=== PATIENT | female | born 1980 | race Caucasian/White ===

== ENCOUNTER 2019-12-09 14:52 | Emergency (ER) | payer OTHER ==
[~2019-12-09] VITALS: Ht 165.1 cm; Wt 104.3 kg
[~2019-12-09 14:52] MED LIST: CETIRIZINE HYDR10 MG PO; CLARITIN10 MG PO; CLINDAMYCIN HC300 MG PO; HYDROCODONE BIT1 T11 PO; TRAMADOL HCL50 MG PO; VITAMIN D2000 IU PO; [UNRECOGNIZED DRUG - OTHER] IM
== END 2019-12-09 17:50 | disposition home or self-care (01) ==
LOC: ED 14:52
DX: S82.891A Other fracture of right lower leg, initial encounter for closed fracture (principal); Z88.0 Allergy status to penicillin; Z91.030 Bee allergy status; Z79.899 Other long term (current) drug therapy; W17.2XXA Fall into hole, initial encounter; Y93.89 Activity, other specified; Y92.89 Other specified places as the place of occurrence of the external cause; Y99.8 Other external cause status

== ENCOUNTER 2021-11-14 13:17 | Emergency (ER) | payer OTHER ==
[~2021-11-14] VITALS: Wt 90.7 kg
[2021-11-14 14:09] LABS: BASO % 0.2 % (0.0-1.0); EOS # 0.1 10*3/uL (0.0-0.4); EOS % 0.7 % (1.0-4.0); HEMATOCRIT 38.3 % (37.0-47.0); LYMPH # 1.2 10*3/uL (1.3-4.4); MEAN CORPUSCULAR HGB 32.7 pg (27.0-31.0); MEAN CORPUSCULAR HGB CONC 33.7 g/dl (33.0-37.0); MEAN PLATELET VOLUME 11.7 fl (9.6-12.3); MONO # 0.7 10*3/uL (0.1-1.0); MONO % 6.6 % (3.0-9.0); NEUT # 8.7 10*3/uL (2.3-7.9); NEUT % 81.1 % (47.0-73.0); PLATELET COUNT AUTOMATED 169 10*3/uL (130-400); RED BLOOD COUNT 3.95 10*6/uL (4.10-5.10); WHITE BLOOD COUNT 10.8 10*3/uL (4.8-10.8)
[2021-11-14 14:26] LABS: ALKALINE PHOSPHATASE 70 U/L (45-117); BUN 8 mg/dl (7-24); CHLORIDE 110 mmol/L (98-107); CREATININE 0.72 mg/dL (0.55-1.02); POTASSIUM 3.8 mmol/L (3.5-5.1); SGOT/AST 9 IU/L (3-35); SGPT/ALT 20 U/L (12-78); SODIUM 141 mmol/L (136-145); TOTAL PROTEIN 6.1 gm/dL (6.4-8.2)
[2021-11-14 14:29] LABS: BETA-HCG, QUANT < 1.0 mIU/mL (1-3)
== END 2021-11-14 17:36 | disposition home or self-care (01) ==
LOC: ED 13:17
PROVIDERS: Family Medicine
DX: B34.9 Viral infection, unspecified (principal)

== ENCOUNTER 2022-01-08 09:34 | Emergency (ER) | payer OTHER ==
[~2022-01-08] VITALS: Ht 167.6 cm; Wt 94.3 kg
[2022-01-08] MEDS ORDERED: DICYCLOMINE HCL10 MG PO (09:58)
[2022-01-08] MEDS ORDERED: CIPROFLOXACIN500 M4 PO (09:59)
[2022-01-08] MEDS ORDERED: CELECOXIB200 M1 PO (10:00)
[2022-01-08] MEDS ORDERED: METRONIDAZOLE500 M1 PO (10:00)
[2022-01-08] MEDS ORDERED: ONDANSETRON HYDR4 MG PO (10:00)
[2022-01-08] MEDS ORDERED: B121000 MCG/1 IM (10:20)
[2022-01-08] MEDS ORDERED: METHOTREXA25 MG/1 M6 IM (10:20)
[2022-01-08] MEDS ORDERED: OMEPRAZOLE MAGN20 MG PO (10:21)
[2022-01-08] MEDS ORDERED: NATURE'S BLEND F1 MG PO (10:21)
[2022-01-08 10:26] LABS: BASO % 0.4 % (0.0-1.0); EOS # 0.1 10*3/uL (0.0-0.4); EOS % 1.3 % (1.0-4.0); HEMATOCRIT 39.3 % (37.0-47.0); LYMPH # 0.9 10*3/uL (1.3-4.4); LYMPH % 12.8 % (27.0-41.0); MEAN CELL VOLUME 94.7 fl (81.0-99.0); MEAN CORPUSCULAR HGB 30.6 pg (27.0-31.0); MEAN CORPUSCULAR HGB CONC 32.3 g/dl (33.0-37.0); MEAN PLATELET VOLUME 10.2 fl (9.6-12.3); MONO # 0.5 10*3/uL (0.1-1.0); MONO % 7.3 % (3.0-9.0); NEUT # 5.3 10*3/uL (2.3-7.9); NEUT % 77.9 % (47.0-73.0); PLATELET COUNT AUTOMATED 258 10*3/uL (130-400); RED BLOOD COUNT 4.15 10*6/uL (4.10-5.10); RED CELL DISTRI WIDTH 12.1 % (0-14.5); WHITE BLOOD COUNT 6.7 10*3/uL (4.8-10.8)
[2022-01-08 10:49] LABS: BUN 10 mg/dl (7-24); CHLORIDE 109 mmol/L (98-107); LIPASE 64 U/L (73-393); POTASSIUM 3.6 mmol/L (3.5-5.1); SODIUM 137 mmol/L (136-145)
[2022-01-08 10:58] LABS: ALKALINE PHOSPHATASE 92 U/L (45-117); BETA-HCG, QUANT < 1.0 mIU/mL (1-3); CREATININE 0.76 mg/dL (0.55-1.02); SGOT/AST 17 IU/L (3-35); SGPT/ALT 17 U/L (12-78); TOTAL PROTEIN 6.6 gm/dL (6.4-8.2)
[2022-01-08 11:42] LABS: BILIRUBIN Negative (Negative); BLOOD Negative (Negative); CLARITY Clear (Clear); COLOR Yellow (Yellow); GLUCOSE Negative (Negative); KETONE Negative (Negative); LEUKO ESTERASE Trace (Negative); NITRITE Negative (Negative); SPECIFIC GRAVITY <= 1.005 (1.001-1.030); UROBILINOGEN 0.2 E.U./dl (0.0-1.0)
[2022-01-08 11:57] LABS: BACTERIA 2+
== END 2022-01-09 11:12 | disposition short-term general hospital (02) ==
LOC: ED 09:34
PROVIDERS: Emergency Medicine
DX: K57.32 Diverticulitis of large intestine without perforation or abscess without bleeding (principal); N13.30 Unspecified hydronephrosis; Z88.0 Allergy status to penicillin; Z91.013 Allergy to seafood; Z79.899 Other long term (current) drug therapy; Z98.51 Tubal ligation status; Z90.710 Acquired absence of both cervix and uterus; Z90.49 Acquired absence of other specified parts of digestive tract

== ENCOUNTER 2022-05-17 12:33 | Emergency (ER) | payer OTHER ==
[~2022-05-17] VITALS: Ht 167.6 cm; Wt 116.1 kg
[~2022-05-17 12:33] MED LIST changes: +B121000 MCG/1 IM; +CELECOXIB200 M1 PO; +CIPROFLOXACIN500 M4 PO; +DICYCLOMINE HCL10 MG PO; +METHOTREXA25 MG/1 M6 IM; +METRONIDAZOLE500 M1 PO; +NATURE'S BLEND F1 MG PO; +OMEPRAZOLE MAGN20 MG PO; +ONDANSETRON HYDR4 MG PO
[2022-05-17 14:21] LABS: BASO % 0.2 % (0.0-1.0); EOS % 0.2 % (1.0-4.0); HEMATOCRIT 35.8 % (37.0-47.0); LYMPH # 0.9 10*3/uL (1.3-4.4); LYMPH % 7.1 % (27.0-41.0); MEAN CELL VOLUME 90.2 fl (81.0-99.0); MEAN CORPUSCULAR HGB 31.2 pg (27.0-31.0); MEAN CORPUSCULAR HGB CONC 34.6 g/dl (33.0-37.0); MEAN PLATELET VOLUME 9.8 fl (9.6-12.3); MONO # 0.9 10*3/uL (0.1-1.0); NEUT # 10.3 10*3/uL (2.3-7.9); NEUT % 85.2 % (47.0-73.0); PLATELET COUNT AUTOMATED 248 10*3/uL (130-400); RED BLOOD COUNT 3.97 10*6/uL (4.10-5.10); WHITE BLOOD COUNT 12.1 10*3/uL (4.8-10.8)
[2022-05-17 14:51] LABS: ALKALINE PHOSPHATASE 152 U/L (45-117); BUN 8 mg/dl (7-24); CHLORIDE 104 mmol/L (98-107); CREATININE 0.67 mg/dL (0.55-1.02); POTASSIUM 3.7 mmol/L (3.5-5.1); SGPT/ALT 43 U/L (12-78); SODIUM 135 mmol/L (136-145); TOTAL PROTEIN 6.5 gm/dL (6.4-8.2)
[2022-05-17 16:21] LABS: BILIRUBIN Negative (Negative); BLOOD 1+ (Negative); CLARITY Clear (Clear); COLOR Yellow (Yellow); GLUCOSE 2+ (Negative); KETONE 1+ (Negative); LEUKO ESTERASE Negative (Negative); NITRITE Negative (Negative)
[2022-05-17 16:32] LABS: BACTERIA TRACE; RBC 16-20 rbc/hpf (0-2)
== END 2022-05-18 08:38 | disposition short-term general hospital (02) ==
LOC: ED 12:33
PROVIDERS: Nurse Practitioner Family
DX: T81.43XA Infection following a procedure, organ and space surgical site, initial encounter (principal); Z20.822 Contact with and (suspected) exposure to COVID-19; Z91.030 Bee allergy status; Z88.0 Allergy status to penicillin; Z79.899 Other long term (current) drug therapy; Z90.710 Acquired absence of both cervix and uterus; Z90.49 Acquired absence of other specified parts of digestive tract; Z98.51 Tubal ligation status; F17.200 Nicotine dependence, unspecified, uncomplicated; Y92.89 Other specified places as the place of occurrence of the external cause

== ENCOUNTER → 2023-09-17 | Outpatient (CLI) | payer BC | END | disposition home or self-care (01) | LOC: CT 04:42 | PROVIDERS: ATTEND Family Medicine | DX: K43.2 Incisional hernia without obstruction or gangrene (principal); Z90.49 Acquired absence of other specified parts of digestive tract ==